=== PATIENT | female | born 1990 | race Two or more races ===

== ENCOUNTER 2022-12-17 16:21 | Outpatient (CLI) | payer OTHER | END 2022-12-17 16:23 | disposition home or self-care (01) | LOC: PRENATAL 16:21 | PROVIDERS: ATTEND Obstetrics & Gynecology Maternal & Fetal Medicine | DX: O35.3XX0 Maternal care for (suspected) damage to fetus from viral disease in mother, not applicable or unspecified (principal); O44.00 Complete placenta previa NOS or without hemorrhage, unspecified trimester; Z3A.19 19 weeks gestation of pregnancy ==

== ENCOUNTER 2022-12-31 10:58 | Outpatient (CLI) | payer OTHER | END 2022-12-31 10:59 | disposition home or self-care (01) | LOC: PRENATAL 10:58 | PROVIDERS: ATTEND Obstetrics & Gynecology Maternal & Fetal Medicine | DX: O26.879 Cervical shortening, unspecified trimester (principal); Z3A.21 21 weeks gestation of pregnancy ==

== ENCOUNTER 2023-01-14 09:21 | Outpatient (CLI) | payer OTHER | END 2023-01-14 09:23 | disposition home or self-care (01) | LOC: PRENATAL 09:21 | PROVIDERS: ATTEND Obstetrics & Gynecology Maternal & Fetal Medicine | DX: O26.849 Uterine size-date discrepancy, unspecified trimester (principal); O26.879 Cervical shortening, unspecified trimester; Z3A.23 23 weeks gestation of pregnancy ==

== ENCOUNTER 2023-02-18 09:15 | Outpatient (CLI) | payer OTHER | END 2023-02-18 09:16 | disposition home or self-care (01) | LOC: PRENATAL 09:15 | PROVIDERS: ATTEND Obstetrics & Gynecology Maternal & Fetal Medicine | DX: O26.849 Uterine size-date discrepancy, unspecified trimester (principal); O26.879 Cervical shortening, unspecified trimester; Z3A.28 28 weeks gestation of pregnancy ==

== ENCOUNTER 2023-03-20 12:06 | Inpatient (IN) | payer OTHER ==
[~2023-03-20] VITALS: Ht 157.5 cm; Wt 66.2 kg
[2023-03-20 13:19] LABS: URINE APPEARANCE Clear; URINE BILIRRUBIN Negative (NEGATIVE); URINE BLOOD Negative; URINE COLOR Yellow; URINE GLUCOSE Negative (NEGATIVE); URINE LEUKOCYTE Trace; URINE NITRATE Negative; URINE PROTEIN Negative (NEGATIVE); URINE UROBILINOGEN 0.2 E.U./dl
[2023-03-20 13:23] LABS: HEMOGLOBIN 10.4 g/dL (12.0-15.00); MEAN CELL VOLUME 89.8 fL (80.00-100.00); MEAN CORPUSCULAR HGB CONC 34.6 g/dl (32.0-36.0); PLATELET COUNT 279 K/uL (150-450); RED BLOOD COUNT 3.35 M/uL (4.00-6.00); RED CELL DISTRIBUTION WIDTH 12.7 % (11.5-14.5); URINE BACTERIA 1504.2 uL (0.0-1933); URINE EPITHELIAL CELLS 10.8 uL (0.0-38.8); URINE RBC 3.8 uL (0.0-20.8); URINE WBC 26.8 uL (0.0-23.2)
[2023-03-21] MEDS ORDERED: PRENATAL + DHA1 EAC1 PO (15:00)
== END 2023-03-23 14:04 | disposition home or self-care (01) | DRG 833 ==
LOC: OBS/DEL 12:06 → LDR 03-21 14:42 → OB/GYN 03-21 14:42 → OBS/DEL 03-21 14:42 → OB/GYN 03-22 15:34
PROVIDERS: ADMIT Obstetrics & Gynecology; ATTEND Obstetrics & Gynecology
PROC: 4A1HXCZ Monitoring of Products of Conception, Cardiac Rate, External Approach (ICD-10-PCS; principal; 2023-03-21)
PROC: BY4FZZZ Ultrasonography of Third Trimester, Single Fetus (ICD-10-PCS; 2023-03-21)
PROC: BU4CZZZ Ultrasonography of Uterus and Ovaries (ICD-10-PCS; 2023-03-21)
DX: O60.03 Preterm labor without delivery, third trimester (principal); O26.843 Uterine size-date discrepancy, third trimester; Z3A.32 32 weeks gestation of pregnancy; Z20.822 Contact with and (suspected) exposure to COVID-19; O36.8130 Decreased fetal movements, third trimester, not applicable or unspecified

== ENCOUNTER 2023-04-16 09:18 | Outpatient (CLI) | payer OTHER ==
[~2023-04-16 09:18] MED LIST: PRENATAL + DHA1 EAC1 PO
== END 2023-04-16 09:19 | disposition home or self-care (01) ==
LOC: PRENATAL 09:18
PROVIDERS: ATTEND Obstetrics & Gynecology Maternal & Fetal Medicine
DX: O26.849 Uterine size-date discrepancy, unspecified trimester (principal); O36.8199 Decreased fetal movements, unspecified trimester, other fetus; O26.879 Cervical shortening, unspecified trimester; Z3A.36 36 weeks gestation of pregnancy

== ENCOUNTER 2023-05-08 09:59 | Inpatient (IN) | payer OTHER ==
[~2023-05-08] VITALS: Ht 157.5 cm; Wt 67.6 kg
[2023-05-08 12:07] LABS: PH,URINE 6.5 (5.0-8.0); URINE APPEARANCE Cloudy; URINE BILIRRUBIN Negative (NEGATIVE); URINE BLOOD Negative; URINE COLOR Dark Yellow; URINE GLUCOSE Negative (NEGATIVE); URINE LEUKOCYTE Small; URINE NITRATE Negative; URINE PROTEIN 30 (NEGATIVE)
[2023-05-08 12:09] LABS: URINE BACTERIA 2246.4 uL (0.0-1933); URINE EPITHELIAL CELLS 45.4 uL (0.0-38.8); URINE RBC 9.1 uL (0.0-20.8)
[2023-05-08 12:11] LABS: HEMATOCRIT 30.6 % (36.0-45.00); HEMOGLOBIN 10.5 g/dL (12.0-15.00); MEAN CELL VOLUME 86.9 fL (80.00-100.00); MEAN CORPUSCULAR HEMOGLOBIN 29.8 pg (27.00-32.0); MEAN CORPUSCULAR HGB CONC 34.3 g/dl (32.0-36.0); PLATELET COUNT 307 K/uL (150-450); RED BLOOD COUNT 3.52 M/uL (4.00-6.00); RED CELL DISTRIBUTION WIDTH 13.8 % (11.5-14.5)
[2023-05-08 12:18] LABS: URINE CRYSTALS MODERATE /HPF
[2023-05-08 12:19] LABS: URINE MUCUS MODERATE
[2023-05-08] MEDS ORDERED: RINGERS SOLUTION,LACTATED 1,000 ML IV SCH (12:30)
[2023-05-08] MEDS ORDERED: OXYTOCIN 20 UNITS/500ML RL PIGGYBAG IV STA (13:00)
[2023-05-08 19:48] LABS: ABG PH 7.272 (7.35-7.45); ABG PO2 20.5 mmHg (80-100); ABG pCO2 42.3 mmHg (35-45)
[2023-05-08 19:49] LABS: BASE EXCESS -7.5 mmol/l; BICARBONATE 19.1 mmol/l (23-25); SaO2 24.5 %; Tco2 20.4 mmol/l; o2 21 %
[2023-05-08] MEDS ORDERED: OXYTOCIN 1,000 ML IV SCH (21:30)
[2023-05-08] MEDS ORDERED: ACETAMINOPHEN 500 MG GEL..CAP PO PRN (21:30)
[2023-05-08] MEDS ORDERED: CHLORHEXIDINE GLUCONATE 120 ML BOTTLE TP SCH (21:30)
[2023-05-08] MEDS ORDERED: LIDOCAINE HCL 1% 200MG/20ML VIAL IJ SCH (21:30)
[2023-05-08] MEDS ORDERED: ERYTHROMYCIN BASE 1 GM TUBE OP SCH (21:30)
[2023-05-08] MEDS ORDERED: OXYTOCIN 10 UNITS/ML VIAL ONE (22:47)
[2023-05-08 23:31] LABS: HEMATOCRIT 28.8 % (36.0-45.00); MEAN CELL VOLUME 86.3 fL (80.00-100.00); MEAN CORPUSCULAR HEMOGLOBIN 29.9 pg (27.00-32.0); MEAN CORPUSCULAR HGB CONC 34.6 g/dl (32.0-36.0); PLATELET COUNT 266 K/uL (150-450); RED BLOOD COUNT 3.34 M/uL (4.00-6.00); RED CELL DISTRIBUTION WIDTH 13.9 % (11.5-14.5)
[2023-05-09] MEDS ORDERED: PNV,CALCIUM 72/IRON/FOLIC ACID 1 TAB TABLET PO SCH (09:00)
== END 2023-05-10 12:40 | disposition home or self-care (01) | DRG 807 ==
LOC: LDR 09:59 → SURH 15:06 → LDR 17:01 → OB/GYN 22:31
PROVIDERS: ADMIT Obstetrics & Gynecology; ATTEND Obstetrics & Gynecology
PROC: 10E0XZZ Delivery of Products of Conception, External Approach (ICD-10-PCS; principal; 2023-05-08)
PROC: 0HQ9XZZ Repair Perineum Skin, External Approach (ICD-10-PCS; 2023-05-08)
PROC: 4A1HXCZ Monitoring of Products of Conception, Cardiac Rate, External Approach (ICD-10-PCS; 2023-05-08)
DX: O70.0 First degree perineal laceration during delivery (principal); Z37.0 Single live birth; Z3A.39 39 weeks gestation of pregnancy; Z20.822 Contact with and (suspected) exposure to COVID-19